=== PATIENT | female | born 1960 ===

== ENCOUNTER 2017-10-15 05:41 | Day surgery (SDC) | payer OTHER ==
[~2017-10-15 05:41] MED LIST: HYZAAR 100-12.1 EACH PO; OMEPRAZOLE40 MG PO; SINGULAIR 10MG10 MG PO; ZANTAC300 MG PO
== END 2017-10-15 12:20 | disposition home or self-care (01) ==
LOC: CIR.AMB 05:41
DX: K80.10 Calculus of gallbladder with chronic cholecystitis without obstruction (principal)